=== PATIENT | female | born 1965 | race Caucasian/White ===

== ENCOUNTER → 2020-07-17 | Outpatient (CLI) | payer OTHER | LOC: MAMMO 09:06 | PROVIDERS: ATTEND Internal Medicine | DX: Z12.31 Encounter for screening mammogram for malignant neoplasm of breast (principal); Z00.00 Encounter for general adult medical examination without abnormal findings; M85.88 Other specified disorders of bone density and structure, other site; I51.7 Cardiomegaly | CPT/HCPCS: 71046; 77067; 77080 ==

== ENCOUNTER 2024-01-06 11:29 | Emergency (ER) | payer OTHER ==
[~2024-01-06] VITALS: Ht 165.1 cm; Wt 76.2 kg
[2024-01-06 11:45] VITALS: PULSE 74; RESP 15; TEMP 97.7; O2SAT 100
== END 2024-01-06 12:20 | disposition home or self-care (01) ==
LOC: ER 11:39
DX: M54.9 Dorsalgia, unspecified (principal); I50.9 Heart failure, unspecified; I48.91 Unspecified atrial fibrillation; G89.29 Other chronic pain; Z87.442 Personal history of urinary calculi; Z95.4 Presence of other heart-valve replacement
CPT/HCPCS: 99283

== ENCOUNTER → 2024-01-06 | Outpatient (REF) | payer OTHER | LOC: MRI 09:39 | PROVIDERS: ATTEND Anesthesiology | DX: M54.16 Radiculopathy, lumbar region (principal); M47.816 Spondylosis without myelopathy or radiculopathy, lumbar region; M79.18 Myalgia, other site | CPT/HCPCS: 72110; 72148 ==